=== PATIENT | male | born 1990 | race Caucasian/White ===

== ENCOUNTER 2019-04-03 04:45 | Emergency (ER) ==
[2019-04-03 04:49] VITALS: BP 132/72; TEMP 98.2; BMI 24.5
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
[2019-04-03] MEDS ORDERED: BOOSTRIX IM ONE ×2 (05:37→05:58)
[2019-04-03] MEDS ORDERED: UNASYN 3 GM in SODIUM CHLORIDE 100 ML IV STA (05:38)
[2019-04-03] MEDS ORDERED: SODIUM CHLORIDE 1,000 ML IV STA (05:38)
[2019-04-03] MEDS ORDERED: LIDOCAINE HCL 1% SDV SUBCUT STA (05:39)
[2019-04-03] MEDS ORDERED: TORADOL IVP STA (05:39)
[2019-04-03] MEDS ORDERED: UNASYN ONE (05:41)
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
[2019-04-03] MEDS ORDERED: LIDOCAINE 2% 20 ML MDV ONE (06:16)
[2019-04-03] MEDS ORDERED: BACTROBAN OINTMENT 1 GRAM APPLICATOR (ER) ONE (07:02)
[2019-04-03] MEDS ORDERED: LIDOCAINE 2%-EPI 1:100,000 20 ML MDV INJ STA (07:08)
[2019-04-03] MEDS ORDERED: BACTROBAN TP STA (07:08)
== END 2019-04-03 08:36 ==
LOC: ED 04:45
DX: S51.812A Laceration without foreign body of left forearm, initial encounter (principal); V89.2XXA Person injured in unspecified motor-vehicle accident, traffic, initial encounter
CPT/HCPCS: 90471; 90715; 96360; 96361; 96366; 99284